=== PATIENT | female | born 1990 | race Caucasian/White ===

== ENCOUNTER 2017-03-28 09:57 | Emergency (ER) | payer SELFPAY ==
[2017-03-28 10:04] VITALS: BMI 34.0
--- NOTE | 2017-03-28 10:13 | PDOC ---
History of Present Illness - General History Source: Patient Exam Limitations: No Limitations - History of Present Illness Initial Comments: 03/28/17 10:37 The patient is a 26-year-old female with a significant past medical history of ovarian cyst and abdominal hernia, who presents to the emergency department with worsening abdominal pain for 3 days. She states the pain is becoming increasingly constant, located in the periumbilical and suprapubic region, non- radiating, sharp, and 7/10 in severity. She states nothing makes the abdominal pain worse or better. She reports she last took Tylenol at 5am with no significant relief of pain. She denies any changes in her bowel movements. The patient denies chest pain, shortness of breath, headache and dizziness. The patient denies fever, chills, nausea, vomit, diarrhea and constipation. The patient denies dysuria, frequency, urgency and hematuria. LMP: 02/08/17 Allergies: NKDA Past Surgical History: None reported Social History: Social alcohol use. No other toxic habits reported. <Kamala Barnes - Last Filed: 03/28/17 14:09> <Kyra Wang - Last Filed: 03/28/17 14:42> - General Chief Complaint: Pain Stated Complaint: ABD PAIN Time Seen by Provider: 03/28/17 10:13 Past History <Kamala Barnes - Last Filed: 03/28/17 14:09> - Past Medical History COPD: No Other medical history: HX HERNIA , NO SX - Suicide/Smoking/Psychosocial Hx Smoking History: Never smoked Hx Alcohol Use: Yes (SOCIAL) Drug/Substance Use Hx: No <Kyra Wang - Last Filed: 03/28/17 14:42> - Past Medical History Allergies/Adverse Reactions: Allergies Allergy/AdvReac Type Severity Reaction Status Date / Time No Known Allergies Allergy Verified 03/28/17 11:16 Home Medications: Ambulatory Orders NK [No Known Home Medication] 03/28/17 Review of Systems - Review of Systems Able to Perform ROS?: Yes Comments:: 03/28/17 10:37 CONSTITUTIONAL: Pt denies fever, chills, weakness HEENT: denies visual changes, sore throat, ear pain RESPIRATORY: denies cough, SOB, hemoptysis CARDIOVASCULAR: denies chest pain, palpitations, lightheadedness, leg swelling GI: (+) Abdominal pain. Denies nausea, vomiting, diarrhea, constipation, blood per rectum, melena : denies dysuria, frequency, discharge MUSCULOSKELETAL: denies back pain, joint swelling, myalgias SKIN: denies bruising, erythema, rash NEUROLOGICAL: denies headache, numbness, focal weakness, tingling, ataxia, weakness HEMATOLOGIC: denies anemia, easy bruising, easy bleeding <Kamala Barnes - Last Filed: 03/28/17 14:09> *Physical Exam - Vital Signs Last Vital Signs Temp Pulse Resp BP Pulse Ox 98.2 F 85 20 152/78 99 03/28/17 10:01 03/28/17 10:01 03/28/17 10:03/28/17 10:01 03/28/17 10:01 - Physical Exam Comments: 03/28/17 10:37 GENERAL: The patient is awake, alert, and fully oriented, Nontoxic - in no acute distress. HEAD: Normocephalic, atraumatic. EYES: extraocular movements intact, sclera anicteric, conjunctiva clear. ENT: Normal voice, moist mucous membranes. NECK: Normal range of motion, supple without lymphadenopathy, JVD, or masses. LUNGS: Breath sounds equal, clear to auscultation bilaterally. No wheezes, no crackles, no rales. HEART: Regular rate and rhythm, normal S1 and S2 without murmur, rub or gallop. ABDOMEN: (+) Epigastric region and b/l lower abdomen ttp. Soft, normoactive bowel sounds. No guarding, no rebound. No masses. No CVA tenderness. EXTREMITIES: Normal range of motion, no edema. No clubbing or cyanosis. No cords , erythema, or tenderness. NEUROLOGICAL: Fully Oriented, Alert, Normal Mood/Affect, Motor Strength 5/5. No facial asymmetry, Normal speech SKIN: Warm, Dry, normal turgor, no rashes or lesions noted. <Kamala Barnes - Last Filed: 03/28/17 14:09> - Vital Signs Last Vital Signs Temp Pulse Resp BP Pulse Ox 98.2 F 85 20 152/78 99 03/28/17 10:01 03/28/17 10:01 03/28/17 10:03/28/17 10:01 03/28/17 10:01 <Kyra Wang - Last Filed: 03/28/17 14:42> ED Treatment Course - LABORATORY CBC & Chemistry Diagram: 03/28/17 10:46 03/28/17 10:46 - RADIOLOGY Radiograph Interpretation: 03/28/17 14:09 EXAM#: TYPE/EXAM: RESULT: [id number] US/TRANSVAGINAL ULTRASOUND US [id number] US/ ABDOMEN US -LIMITED ADDENDUM ADDENDUM #1 Addendum: Pelvic pain. Rule out cyst. Pelvis ultrasound, transvesical and transvaginal The uterus measures 9.5 x 4.9 eater in sagittal and AP dimension. There is a hypoechoic heterogeneous mass in the anterior myometrium measuring 2.4 x 2 cm with vascular flow likely representing a fibroid. Endometrial stripe is thickened measuring 1.6 cm in AP dimension with a trace of fluid within the endometrial cavity. The left ovary measures 5.3 x 3.7 cm with a simple cyst measuring 3.4 x 3.2 cm appear normal vascular flow. There is a right adnexal mass measuring 7.4 x 6.6 cm in with heterogeneous echotexture and very minimal peripheral flow detected. Normal ovarian tissue could not the clearly identified. IMPRESSION: Thickened endometrial stripe at the fundus measuring 1.6 cm with a trace of fluid within the endometrial cavity. Anterior/right lateral myometrial mass measuring 2.4 cm in maximum dimension likely representing a fibroid.. Further evaluation is needed. Left ovarian simple cyst measuring 3.4 x 3.2 cm. Right adnexal mass measuring 7.4 x 6.6 cm with only minimal peripheral vascular flow detected on the color Doppler images. The differential diagnosis includes an endometrioma, among other possibilities of a right ovarian mass. Further evaluation is recommended ORIGINAL REPORT * Epigastric pain Right upper abdomen ultrasound. The liver is within normal limits in size with a moderately dense echotexture. Gallbladder is adequately distended with multiple intraluminal stones and without wall thickening or pericholecystic free fluid. No intra or extrahepatic bile duct dilatation is seen. The right kidney measures 9.9 cm in sagittal length and it appears unremarkable. Visualized portion of the pancreas appears unremarkable Visualized portion of the proximal abdominal aorta and inferior vena cava appear unremarkable. Normal flow in the main portal vein. IMPRESSION: Echogenic liver compatible with fatty infiltration versus hepatocellular disease. Please correlate with liver enzymes. Multiple gallstones without sonographic evidence of acute cholecystitis. Reported By: Chris Diaz MD 03/28/17 1352 Epigastric pain Right upper abdomen ultrasound. The liver is within normal limits in size with a moderately dense echotexture. Gallbladder is adequately distended with multiple intraluminal stones and without wall thickening or pericholecystic free fluid. No intra or extrahepatic bile duct dilatation is seen. The right kidney measures 9.9 cm in sagittal length and it appears unremarkable. Visualized portion of the pancreas appears unremarkable Visualized portion of the proximal abdominal aorta and inferior vena cava appear unremarkable. Normal flow in the main portal vein. IMPRESSION: Echogenic liver compatible with fatty infiltration versus hepatocellular disease. Please correlate with liver enzymes. Multiple gallstones without sonographic evidence of acute cholecystitis. <Kamala Barnes - Last Filed: 03/28/17 14:09> - LABORATORY CBC & Chemistry Diagram: 03/28/17 10:46 03/28/17 10:46 <Kyra Wang - Last Filed: 03/28/17 14:42> Medical Decision Making - Medical Decision Making I, Dr. Kyra Wang, attest that the scribes documentation that appears above has been prepared under my direction and personally reviewed by me. I confirmed that the note above accurately reflects all work, treatment, procedures, and medical decision-making performed by me. 03/28/17 10:44 Pt seen and examined at bedside by teletypewriter operator, pt with c/o periumbilical sharp pain x 3 days , pain does not radiate but pt has discomfort in lower abdomen and c/o abdominal distention and pain with putting on pants. Pt's lmp was 10-17, pt denies any recent sexual activity but will do test. DD at present is gastritis, stomach ulcer,undiagnosed , uti, unlikely pancreatitis or early appendiciyis will give fluid, pepcid for stomach, cbc,cmp, amylase, lipase , ua and revaluate 03/28/17 10:53 <Kyra Wang - Last Filed: 03/28/17 14:42> *DC/Admit/Observation/Transfer - Attestations Scribe Attestion: 03/28/17 10:38 Documentation prepared by Kamala Barnes, acting as director medical safety for Kyra Wang MD/DO. <Kamala Barnes - Last Filed: 03/28/17 14:09> - Discharge Dispostion Admit: No <Kyra Wang - Last Filed: 03/28/17 14:42> Diagnosis at time of Disposition: Ovarian mass, right, Gall stones - Discharge Dispostion Disposition: HOME Condition at time of disposition: Stable - Referrals Referrals: Heather Conley MD [Staff Physician] - Bijal Plaza MD [Staff Physician] - Rosa Villalobos MD [Certified Nurse Script Artist] - - Patient Instructions Printed Discharge Instructions: DI for Gallstones, Uterine Fibroids, DI for Ovarian Cancer, Ovarian Cyst
[2017-03-28] MEDS ORDERED: FAMOTIDINE IV 20 MG/12 ML VIAL IVPB ONE (10:30)
[2017-03-28] MEDS ORDERED: SODIUM CHLORIDE 1,000 ML IV SCH (10:30)
[2017-03-28 10:54] LABS: BASOPHIL 0.5 % (0-2.0); MCHC 34.1 g/dl (32.0-36.0); MEAN PLT VOLUME 7.6 fl (7.5-11.1); NEUTROPHILS 53.1 % (42.8-82.8); PLATELET COUNT 256 K/MM3 (134-434); RDW 12.7 % (11.6-15.6); WHITE BLOOD COUNT 6.8 K/mm3 (4.0-10.0)
[2017-03-28] MEDS ORDERED: FAMOTIDINE 20 MG/50 ML IVPB 20 MG/50 ML MG IVPB ONE (10:59)
[2017-03-28 11:25] LABS: AMYLASE 59 U/L (25-115)
[2017-03-28 11:29] LABS: ALBUMIN 3.9 g/dl (3.4-5.0); ANION GAP 8 (8-16); BILIRUBIN,TOTAL 0.8 mg/dL (0.2-1.0); CO2 24 mmol/L (21-32); CREATININE 0.7 mg/dL (0.55-1.02); GLUCOSE,RANDOM 99 mg/dL (74-106); SGOT/AST 26 U/L (15-37); SGPT/ALT 56 U/L (12-78); TOT PROT 7.5 g/dl (6.4-8.2)
[2017-03-28 11:30] LABS: ALK PHOS 91 U/L (45-117)
[2017-03-28] MEDS ORDERED: KETOROLAC TROMETHAMINE 30 MG/1 ML VIAL IM ONE (11:48)
[2017-03-28] MEDS ORDERED: KETOROLAC TROMETHAMINE 30 MG/1 ML VIAL ONE (11:52)
[2017-03-28 13:42] LABS: URINE BILIRUBIN NEGATIVE (NEGATIVE); URINE BLOOD NEGATIVE (NEGATIVE); URINE COLOR LT. YELLOW; URINE GLUCOSE (UA) NEGATIVE (NEGATIVE); URINE KETONE TRACE (NEGATIVE); URINE NITRITE NEGATIVE (NEGATIVE); URINE PROTEIN NEGATIVE (NEGATIVE); URINE UROBILINOGEN 0.2 mg/dL (0.2-1.0)
[2017-03-28 13:44] LABS: URINE APPEARANCE TURBID
[2017-03-28 14:44] VITALS: BP 111/72; PULSE 29; TEMP 98.5
[2017-03-28 19:49] LABS: URINE LEUK ESTERASE Negative (NEGATIVE)
== END 2017-03-28 16:15 | disposition home or self-care (01) ==
LOC: JER 09:57
PROC: 3E0337Z Introduction of Electrolytic and Water Balance Substance into Peripheral Vein, Percutaneous Approach (ICD-10-PCS; principal; 2017-03-28)
DX: N83.8 Other noninflammatory disorders of ovary, fallopian tube and broad ligament (principal); K80.20 Calculus of gallbladder without cholecystitis without obstruction
CPT/HCPCS: 36415; 76705-TC; 76830-TC; 80053; 81003; 82150; 83690; 84703; 85025; 99283-25